=== PATIENT | male | born 2000 | race Caucasian/White ===

== ENCOUNTER 2024-11-09 08:41 | Outpatient (CLI) | payer OTHER | END 2024-11-09 08:42 | disposition home or self-care (01) | LOC: CSHSLEEP 08:41 | PROVIDERS: ATTEND Internal Medicine | DX: G47.33 Obstructive sleep apnea (adult) (pediatric) (principal); R53.83 Other fatigue; R09.89 Other specified symptoms and signs involving the circulatory and respiratory systems; R51.9 Headache, unspecified; R06.83 Snoring | CPT/HCPCS: 95800 ==